=== PATIENT | female | born 1985 | race African-American/Black ===

== ENCOUNTER 2021-05-27 13:40 | Emergency (ER) | payer MEDICAID ==
[~2021-05-27] VITALS: Ht 172.7 cm; Wt 91.0 kg
[2021-05-27] MEDS ORDERED: MORPHINE SULFATE 4 MG/ML CPJ (NOT FOR IM USE) IV STA (15:13)
[2021-05-27] MEDS ORDERED: SODIUM CHLORIDE 0.9% 1,000 ML IV ONE (15:15)
[2021-05-27 16:20] LABS: CHLORIDE 109 mEq/L (98-107)
[2021-05-27 16:24] LABS: HCG SCREEN NEGATIVE
[2021-05-27 16:27] LABS: INR 1.2; PROTHROMBIN TIME 13.2 sec (9.6-11.0)
[2021-05-27 16:59] LABS: BASOPHILS % 0.9 % (0.0-2.0); EOSINOPHILS % 0.9 % (0.0-5.0); HEMATOCRIT. 32.1 % (36.0-48.0); HEMOGLOBIN. 10.6 g/dL (12.0-16.0); LYMPHOCYTES % 27.8 % (20.0-50.0); MEAN CORPUSCULAR HEMOGLOBIN 22.2 pg (28.0-32.0); MEAN CORPUSCULAR VOLUME 67.5 fL (81.0-99.0); MEAN PLATELET VOLUME 7.7 fl (7.4-10.4); MONOCYTES % 5.9 % (2.0-8.0); NEUTROPHILS % 64.5 % (40.0-76.0); PLATELET 317 x1000/uL (130-400); RED BLOOD CELL COUNT 4.76 mill/uL (4.2-5.4); RED CELL DISTRIBUTION WIDTH 17.3 % (11.6-14.6)
[2021-05-27 17:43] LABS: PLATELET ESTIMATE NORMAL
[2021-05-27] MEDS ORDERED: IOHEXOL-300 100 ML BOTTLE ONE (18:27)
[2021-05-27] MEDS ORDERED: HYDROCODONE/ACETAMINOPHEN 5/325MG TABLET PO ONE (20:00)
[2021-05-27 21:01] LABS: CLARITY URINE CLEAR (CLEAR); COLOR URINE YELLOW (YELLOW); KETONES URINE 1+ (NEGATIVE); LEUKOCYTE ESTERASE URINE NEGATIVE (NEGATIVE); NITRITE URINE NEGATIVE (NEGATIVE); OCCULT BLOOD URINE NEGATIVE (NEGATIVE); PH URINE 6.5 (4.5-8.0); PROTEIN URINE TRACE (NEGATIVE); SPECIFIC GRAVITY URINE >1.040 (1.005-1.030)
[2021-05-27] MEDS ORDERED: KETOROLAC 30MG/ML VIAL IV ONE (21:45)
[2021-05-27 22:00] VITALS: BP 122/75
== END 2021-05-27 22:21 | disposition home or self-care (01) ==
LOC: ER 14:06
DX: R10.9 Unspecified abdominal pain (principal); D25.9 Leiomyoma of uterus, unspecified; F41.9 Anxiety disorder, unspecified; F32.9 Major depressive disorder, single episode, unspecified; Z98.51 Tubal ligation status; Z91.010 Allergy to peanuts
CPT/HCPCS: 36415; 74177; 76830; 76856; 80053; 81003; 83690; 84703; 85025; 85610; 86850; 86900; 86901; 87210; 96361; 96374; 96375; 99285; J1885; J2270; J7030; Q9967